=== PATIENT | male | born 1955 | race African-American/Black ===

== ENCOUNTER 2016-07-26 23:11 | Emergency (ER) | payer MEDICARE, BC ==
[~2016-07-26] VITALS: Ht 165.1 cm; Wt 108.2 kg
[~2016-07-26 23:11] MED LIST: ASPIRIN E.C. 8181 MG PO; CLOTRIMAZOLE1% TP; DILTIAZEM HYDR240 MG PO; GEMCOR600 MG PO; GLUCOPHAGE1000 MG PO; INDOCIN50 MG PO; INSULIN 70/3100 U/ML SQ; INSULIN SYRINGE1 DEV; LORTAB 10/500 51 TAB PO; NEURONTIN300 MG/CAP PO; NITROGLYCERIN0.4 MG SL; OMEPRAZOLE20 MG PO; QUETIAPINE FUM100 MG PO; SERTRALINE HCL100 MG PO; VALIUM 10MG10 MG/TAB PO
[2016-07-26 23:20] VITALS: BP 148/77; TEMP 98.1
[2016-07-27 00:21] LABS: BASO # 0.1 (0.0-0.2); BASO % 0.7 % (0.0-2.0); EOS # 0.2 (0.0-0.7); EOS % 2.6 % (0-4.0); GRAN % 39.4 % (42.2-75.2); HEMATOCRIT 34.1 % (42.0-52.0); LYMPH # 3.5 (1.2-3.4); LYMPH % 46.3 % (20.0-51.0); MEAN CELL VOLUME 81 fl (80.0-100.0); MEAN CORPUSCULAR HEMOGLOBIN 26 pg (27.0-31.0); MEAN CORPUSCULAR HGB CONC 32 g/dl (33.0-37.0); MEAN PLATELET VOLUME 10.4 fl (7.4-10.4); MONO # 0.8 (0.1-0.6); MONO % 10.6 % (1.7-9.3); PLATELET COUNT 212 K/mm3 (130-400); RED BLOOD COUNT 4.19 M/mm3 (4.20-5.60); REDCELL DISTRIBUTION WIDTH-CV 15.3 % (11.5-14.5); WHITE BLOOD COUNT 7.6 K/mm3 (4.8-10.8)
[2016-07-27 00:33] LABS: ADJUSTED CALCIUM 8.7 mg/dL (8.4-10.2); ALANINE AMINOTRANSFERASE 26 U/L (21-72); ALBUMIN 4.3 gm/dL (3.5-5.0); ALKALINE PHOSPHATASE 91 U/L (50-136); ANION GAP 16 mmol/L (7-16); BILIRUBIN,TOTAL 0.6 mg/dL (0.0-1.0); BLOOD UREA NITROGEN 16 mg/dL (9-20); CALCIUM 8.9 mg/dL (8.4-10.2); CARBON DIOXIDE 23 mmol/L (22-30); CHLORIDE 102 mmol/L (98-107); CREATININE, serum 0.91 mg/dL (0.66-1.25); GLUCOSE 83 mg/dL (74-106); POTASSIUM 3.5 mmol/L (3.4-5.0); SODIUM 141 mmol/L (137-145); TOTAL PROTEIN 7.7 gm/dL (6.4-8.2)
[2016-07-27 00:51] LABS: TROPONIN-I < 0.012 ng/mL (0.000-0.034)
[2016-07-27] MEDS ORDERED: FOLIC ACID0.4 MG PO (00:54)
[2016-07-27] MEDS ORDERED: PROTONIX 40MG T40 MG PO (00:54)
[2016-07-27] MEDS ORDERED: EFFEXOR 75M75 MG/TAB PO (00:56)
[2016-07-27] MEDS ORDERED: VIAGRA100 M1 PO (00:56)
[2016-07-27] MEDS ORDERED: SENOKOT S 50 MG1 TAB PO (00:57)
[2016-07-27] MEDS ORDERED: LEADER EYE ITCH5 ML OP (00:58)
[2016-07-27] MEDS ORDERED: COZAAR100 MG PO (00:59)
[2016-07-27] MEDS ORDERED: CARDIZEM CD360 MG PO (01:00)
[2016-07-27] MEDS ORDERED: DITROPAN XL10 MG PO (01:00)
[2016-07-27] MEDS ORDERED: TRUSOPT OCUMETE10 ML OP (01:01)
[2016-07-27] MEDS ORDERED: XALATAN EYE DROPS OU (01:05)
[2016-07-27 03:31] LABS: PH 5 (5-8); SQUAMOUS EPITHELIAL None Seen /hpf; URINE APPEARANCE Clear; URINE BACTERIA None Seen /hpf; URINE BILIRUBIN Negative (NEGATIVE); URINE BLOOD Negative (NEGATIVE); URINE COLOR Yellow; URINE GLUCOSE 1+ (NEGATIVE); URINE KETONE Negative (NEGATIVE); URINE RBC 0-2 /hpf; URINE UROBILINOGEN Negative (NEGATIVE); URINE WBC 0-2 /hpf
[2016-07-27 03:52] VITALS: PULSE 72
== END 2016-07-27 03:54 | disposition home or self-care (01) ==
LOC: COL.ER 23:11
PROVIDERS: Emergency Medicine
DX: R07.89 Other chest pain (principal); M54.5 Low back pain; R33.9 Retention of urine, unspecified; I10 Essential (primary) hypertension; E10.9 Type 1 diabetes mellitus without complications; E78.5 Hyperlipidemia, unspecified; N40.1 Benign prostatic hyperplasia with lower urinary tract symptoms; K21.9 Gastro-esophageal reflux disease without esophagitis; I25.2 Old myocardial infarction; J44.9 Chronic obstructive pulmonary disease, unspecified; Z86.73 Personal history of transient ischemic attack (TIA), and cerebral infarction without residual deficits; Z87.891 Personal history of nicotine dependence; Z79.82 Long term (current) use of aspirin; Z95.0 Presence of cardiac pacemaker; Z79.84 Long term (current) use of oral hypoglycemic drugs; Z79.4 Long term (current) use of insulin
CPT/HCPCS: J1170; J1885; J7040

== ENCOUNTER 2016-11-06 07:50 | Day surgery (SDC) | payer MEDICARE, BC ==
[2016-11-06] VITALS (14 sets, daily range): BP systolic 124–162; BP diastolic 71–90; PULSE 56–87; TEMP 97.6
[~2016-11-06] VITALS: Ht 165.2 cm; Wt 106.3 kg
[~2016-11-06 07:50] MED LIST changes: +CARDIZEM CD360 MG PO; +COZAAR100 MG PO; +DITROPAN XL10 MG PO; +EFFEXOR 75M75 MG/TAB PO; +FOLIC ACID0.4 MG PO; +LEADER EYE ITCH5 ML OP; +PROTONIX 40MG T40 MG PO; +SENOKOT S 50 MG1 TAB PO; +TRUSOPT OCUMETE10 ML OP; +VIAGRA100 M1 PO; +XALATAN EYE DROPS OU
[2016-11-06] MEDS ORDERED: PLAVIX 75MG TAB75 MG PO (08:03)
[2016-11-06 08:40] LABS: HEMATOCRIT 38.7 % (42.0-52.0); HEMOGLOBIN 12.7 g/dl (13.5-18.0); MEAN CELL VOLUME 82 fl (80.0-100.0); MEAN CORPUSCULAR HEMOGLOBIN 27 pg (27.0-31.0); MEAN CORPUSCULAR HGB CONC 33 g/dl (33.0-37.0); MEAN PLATELET VOLUME 10.1 fl (7.4-10.4); PLATELET COUNT 233 K/mm3 (130-400); RED BLOOD COUNT 4.73 M/mm3 (4.20-5.60); WHITE BLOOD COUNT 7.1 K/mm3 (4.8-10.8)
[2016-11-06 08:54] LABS: CALCIUM 9.1 mg/dL (8.4-10.2); CREATININE, serum 0.91 mg/dL (0.66-1.25); POTASSIUM 3.8 mmol/L (3.4-5.0)
[2016-11-06 08:55] LABS: INR 1.1 (0.8-3.0)
[2016-11-06] MEDS ORDERED: FLOMAX 0.40.4 MG/CAP PO (09:23)
== END 2016-11-06 18:44 | disposition home or self-care (01) ==
LOC: COL.CAR 07:50
PROVIDERS: Internal Medicine Cardiovascular Disease
DX: I20.0 Unstable angina (principal); I10 Essential (primary) hypertension; I49.5 Sick sinus syndrome; E11.40 Type 2 diabetes mellitus with diabetic neuropathy, unspecified; F32.9 Major depressive disorder, single episode, unspecified; Z79.01 Long term (current) use of anticoagulants; Z79.4 Long term (current) use of insulin; Z87.891 Personal history of nicotine dependence; Z83.3 Family history of diabetes mellitus; Z82.49 Family history of ischemic heart disease and other diseases of the circulatory system
CPT/HCPCS: C1894; J0360; J2250; J3010; Q9967

== ENCOUNTER → 2016-12-20 | Outpatient (CLI) | payer MEDICARE, BC ==
[~2016-12-20] MED LIST changes: +FLOMAX 0.40.4 MG/CAP PO; +PLAVIX 75MG TAB75 MG PO
== END ==
LOC: COL.RAD 14:28
DX: R20.0 Anesthesia of skin (principal); R51 Headache; Z86.73 Personal history of transient ischemic attack (TIA), and cerebral infarction without residual deficits

== ENCOUNTER → 2017-11-11 | Outpatient (CLI) | payer MEDICARE, BC | LOC: COL.RAD 13:00 | DX: M99.71 Connective tissue and disc stenosis of intervertebral foramina of cervical region (principal); M51.16 Intervertebral disc disorders with radiculopathy, lumbar region; M50.123 Cervical disc disorder at C6-C7 level with radiculopathy; G62.9 Polyneuropathy, unspecified; N13.9 Obstructive and reflux uropathy, unspecified; E78.5 Hyperlipidemia, unspecified; Z79.4 Long term (current) use of insulin ==

== ENCOUNTER 2018-03-14 01:42 | Emergency (ER) | payer MEDICARE, BC ==
[~2018-03-14] VITALS: Ht 165.1 cm; Wt 100.9 kg
[2018-03-14 01:48] VITALS: TEMP 97.9
[2018-03-14] MEDS ORDERED: FERROUS GL325 MG/TAB PO (02:02)
[2018-03-14] MEDS ORDERED: CYMBALTA 30MG30 MG PO (02:06)
[2018-03-14] MEDS ORDERED: COREG 3.123.125 MG/T PO (02:06)
[2018-03-14] MEDS ORDERED: CYMBALTA 60MG60 MG PO (02:06)
[2018-03-14] MEDS ORDERED: ZOFRAN8 MG PO (02:07)
[2018-03-14] MEDS ORDERED: LYRICA 100MG C100 M1 PO (02:07)
[2018-03-14] MEDS ORDERED: MOBIC15 MG PO (02:07)
[2018-03-14] MEDS ORDERED: RISPERDAL2 MG PO (02:07)
[2018-03-14] MEDS ORDERED: NOVOLIN 70/30 710 ML SQ (02:09)
[2018-03-14 02:25] LABS: BASO % 0.2 % (0.0-2.0); EOS % 0.5 % (0-4.0); GRAN # 4.8 (1.4-6.5); GRAN % 73.6 % (42.2-75.2); HEMATOCRIT 40.7 % (42.0-52.0); HEMOGLOBIN 13.9 g/dl (13.5-18.0); MEAN CELL VOLUME 85 fl (80.0-100.0); MEAN CORPUSCULAR HEMOGLOBIN 29 pg (27.0-31.0); MEAN CORPUSCULAR HGB CONC 34 g/dl (33.0-37.0); MEAN PLATELET VOLUME 10.6 fl (7.4-10.4); MONO # 0.7 (0.1-0.6); MONO % 10.1 % (1.7-9.3); PLATELET COUNT 245 K/mm3 (130-400); RED BLOOD COUNT 4.77 M/mm3 (4.20-5.60); REDCELL DISTRIBUTION WIDTH-CV 13.4 % (11.5-14.5)
[2018-03-14 02:39] LABS: ALANINE AMINOTRANSFERASE 30 U/L (21-72); ALBUMIN 4.4 gm/dL (3.5-5.0); ALKALINE PHOSPHATASE 112 U/L (50-136); ANION GAP 11 mmol/L (7-16); AST,SGOT 29 U/L (15-37); BILIRUBIN,TOTAL 0.7 mg/dL (0.0-1.0); BLOOD UREA NITROGEN 15 mg/dL (9-20); C-REACTIVE PROTEIN 2.8 mg/dL (0.0-0.9); CALCIUM 9.2 mg/dL (8.4-10.2); CARBON DIOXIDE 24 mmol/L (22-30); CHLORIDE 104 mmol/L (98-107); CREATININE, serum 0.96 mg/dL (0.66-1.25); GLUCOSE 171 mg/dL (74-106); LIPASE 112 U/L (23-300); POTASSIUM 3.7 mmol/L (3.4-5.0); SODIUM 139 mmol/L (137-145)
[2018-03-14 02:48] LABS: TROPONIN-I < 0.012 ng/mL (0.000-0.034)
[2018-03-14] MEDS ORDERED: PHENERGAN 25 TA25 MG PO (04:50)
[2018-03-14 05:34] VITALS: BP 136/71; PULSE 74
== END 2018-03-14 05:35 | disposition home or self-care (01) ==
LOC: COL.ER 01:42
PROVIDERS: Emergency Medicine
DX: R11.2 Nausea with vomiting, unspecified (principal); R19.7 Diarrhea, unspecified; R10.9 Unspecified abdominal pain; E11.9 Type 2 diabetes mellitus without complications; F41.9 Anxiety disorder, unspecified; I10 Essential (primary) hypertension; F32.9 Major depressive disorder, single episode, unspecified; Z79.4 Long term (current) use of insulin; Z87.891 Personal history of nicotine dependence; Z98.890 Other specified postprocedural states
CPT/HCPCS: J2405; J7030

== ENCOUNTER → 2018-04-08 | Outpatient (CLI) | payer MEDICARE, BC ==
[~2018-04-08] MED LIST changes: +COREG 3.123.125 MG/T PO; +CYMBALTA 30MG30 MG PO; +CYMBALTA 60MG60 MG PO; +FERROUS GL325 MG/TAB PO; +LYRICA 100MG C100 M1 PO; +MOBIC15 MG PO; +NOVOLIN 70/30 710 ML SQ; +PHENERGAN 25 TA25 MG PO; +RISPERDAL2 MG PO; +ZOFRAN8 MG PO
== END ==
LOC: COL.RAD 07:46
DX: R11.2 Nausea with vomiting, unspecified (principal); R10.9 Unspecified abdominal pain
CPT/HCPCS: A9541

== ENCOUNTER → 2019-12-01 | Emergency (ER) | payer MEDICARE, BC ==
[~2019-12-01] VITALS: Ht 165.1 cm; Wt 94.5 kg
[~2019-12-01] MED LIST changes: +AMITRIPTYLINE H50 M1 PO; +CEPHALEXIN500 M1 PO; +COREG 25MG25 MG/TAB PO; -COREG 3.123.125 MG/T PO; +FLEXERIL 1010 MG/TAB PO; +MASON NATURAL2000 IU PO; +PEPCID 20MG TAB20 MG PO; +ZYRTEC 10MG10 MG PO
[2019-12-01 18:35] VITALS: BP 133/72; PULSE 72; TEMP 98.2
== END ==
LOC: COL.ER 18:17
DX: Z53.21 Procedure and treatment not carried out due to patient leaving prior to being seen by health care provider (principal); R73.9 Hyperglycemia, unspecified

== ENCOUNTER 2020-06-14 20:23 | Observation (INO) | payer MEDICARE ==
[~2020-06-14] VITALS: Ht 165.1 cm; Wt 96.8 kg
[2020-06-14 21:20] LABS: BASO % 0.6 % (0.0-2.0); EOS # 0.1 (0.0-0.7); EOS % 1.9 % (0-4.0); GRAN # 3.4 (1.4-6.5); GRAN % 50.1 % (42.2-75.2); HEMATOCRIT 33.8 % (42.0-52.0); HEMOGLOBIN 11.2 g/dl (13.5-18.0); LYMPH # 2.6 (1.2-3.4); LYMPH % 38.1 % (20.0-51.0); MEAN CELL VOLUME 87 fl (80.0-100.0); MEAN CORPUSCULAR HEMOGLOBIN 29 pg (27.0-31.0); MEAN CORPUSCULAR HGB CONC 33 g/dl (33.0-37.0); MONO # 0.6 (0.1-0.6); MONO % 8.9 % (1.7-9.3); PLATELET COUNT 251 K/mm3 (130-400); RED BLOOD COUNT 3.88 M/mm3 (4.20-5.60)
[2020-06-14 21:22] LABS: ALANINE AMINOTRANSFERASE 19 U/L (4-49); ALBUMIN 4.2 gm/dL (3.5-5.0); ALKALINE PHOSPHATASE 73 U/L (50-136); ANION GAP 10 mmol/L (7-16); AST,SGOT 24 U/L (15-37); BILIRUBIN,TOTAL < 0.1 mg/dL (0.0-1.0); BLOOD UREA NITROGEN 21 mg/dL (9-20); CALCIUM 9.2 mg/dL (8.4-10.2); CARBON DIOXIDE 27 mmol/L (22-30); CHLORIDE 100 mmol/L (98-107); CREATININE, serum 1.25 (0.66-1.25); GLUCOSE 261 mg/dL (74-106); LIPASE 81 U/L (23-300); POTASSIUM 4.1 mmol/L (3.4-5.0); SODIUM 136 mmol/L (137-145)
[2020-06-14 21:40] LABS: TROPONIN-I < 0.012 ng/mL (0.000-0.035)
[2020-06-14 21:53] LABS: TSH w REFLEX 0.738 uIU/mL (0.465-4.680)
[2020-06-14 23:22] LABS: COLLECTION METHOD CATHETER
[2020-06-14 23:42] LABS: PH 6 (5-8); SQUAMOUS EPITHELIAL None Seen /hpf; URINE APPEARANCE Clear; URINE BACTERIA None Seen /hpf; URINE BILIRUBIN Negative (NEGATIVE); URINE BLOOD Negative (NEGATIVE); URINE COLOR Yellow; URINE GLUCOSE 2+ (NEGATIVE); URINE KETONE Negative (NEGATIVE); URINE LEUKOCYTE ESTERASE Negative (NEGATIVE); URINE NITRATE Negative (NEGATIVE); URINE PROTEIN(semi-quant) Negative (NEGATIVE); URINE RBC 0-2 /hpf; URINE UROBILINOGEN Negative (NEGATIVE)
--- NOTE | 2020-06-15 05:38 | NUR ---
0445- PT ADMIT FROM ER W C/O DIZZY FALLS AND SOA ALONG W HYPERGLYCEMIA. PT LIVES ALONE AT HOME AND HAS HAD SEVERAL FALLS RECENTLY. ALSO ADMITS TO FEELING FORGETFUL AND HARD TO FIND WORDS TO [facility]. L AC INT, FLUSHED. 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 VERY UNSTEADY WHEN AMBULATING TO BR W CANE. BEDALARM ON. PLAN OF CARE REVIEWED. NPO FOR MRI THIS AM. WILL GET STROKE WORK UP THIS AM. C/O CONSTANT PAIN IN HAND AND FEET, NEUROPATHY. CALL LIGHT WI REACH.
--- NOTE | 2020-06-15 06:06 | NUR ---
DR HERNANDEZ CALLED FOR ORDERS. UPDATED ON PT STATUS. WILL PLACE MORE ORDERS THIS AM WHEN HE SEES HIM. DR BELTRAN IS AWARE OF CONSULT.
--- NOTE | 2020-06-15 07:30 | NUR ---
Patient resting in bed at this time. Does not C/O any pain, discomfort, or further needs at this time. Will continue to monitor. Call light within reach. Fall percautions in place.
[2020-06-15 07:34] VITALS: BP 154/62; PULSE 82; TEMP 97.4
[2020-06-15 11:25] VITALS: BP 133/69; PULSE 78; TEMP 97.8
--- NOTE | 2020-06-15 12:40 | NUR ---
First visit from the report specialist. No needs right now.
--- NOTE | 2020-06-15 12:48 | NUR ---
Patient given all scheduled medications. Consent obtained for a lumbar puncture. Patient C/O of neuropathy in hands and feet. Poell notified. Patient taken down by wheelchair for lumbar puncture.
--- NOTE | 2020-06-15 13:30 | NUR ---
Patient back from Lumbar Puncture. Tolerated procedure well. Will continue to monitor.
[2020-06-15 13:34] VITALS: BP 160/79; PULSE 82
--- NOTE | 2020-06-15 13:35 | NUR ---
Patient lying flat following procedure.
[2020-06-15 14:01] LABS: CSF APPEARANCE CLEAR; CSF COLOR COLORLESS; CSF RBC 13 /mm3 (0-0)
[2020-06-15 14:04] LABS: GLUCOSE,CSF 53 mg/dL (40-70); TOTAL PROTEIN,CSF 100 mg/dL (15-45)
--- NOTE | 2020-06-15 14:38 | NUR ---
NATHALIA met with the patient to discuss discharge plan. The patient lives alone in [place]. He states that his son, Ciaran (ph#[phone]), and his family also live in [facility]. He reports needing some assistance with ADLs prior to hospitalization and has a cane. He states that he receives private duty services from [facility]. SW contacted and confirmed services from [facility]. The CT pays for his services. An RN comes out once a week and he receives home making services through them twice a week. THe patient's PCP is Dr. Jaun Gaffney and he receives his medications from [facility] in . The patient does not have a DPOA-HC, but he states that he does have one completed and at home. He states that he designated his son, Ciaran. The patient is not and he has two living children: Ciaran and Colton. PT worked with the patient and recommend considering IPR. SW discussed this with the patient. The patient is interested in IPR. SW consulted IPR Director, Janet. Awaiting screen. NATHALIA contacted and updated the patient's son, Ciaran. He is agreeable to IPR. He confirms that he is the patient's DPOA-HC, but that he does not have a copy. He states that the DPOA-HC is at the patient's house. Discharge plan: Awaiting screen from IPR*
[2020-06-15 14:39] LABS: CSF MONONUCLEAR 100 % (70-100); CSF POLYMORPHONUCLEAR 0 % (0-6)
[2020-06-15 16:18] VITALS: BP 162/76; PULSE 87; TEMP 98
[2020-06-15 19:25] VITALS: BP 156/69; PULSE 95; TEMP 98.2
--- NOTE | 2020-06-15 19:28 | NUR ---
Patient had a lumbar puncture done today. Tolerated procedure well. Patient was also taken down for a T-spine and C-spine. Results pending. Patient denies any pain or discomfort at this time. Patient is A&O x4. Activitiy is 1 person assist with walker. Patient denies any further needs at this time Call light within reach. Fall percautions in place. Bedside report given to DOE Jc.
[2020-06-15] MEDS ORDERED: PROTONIX 40MG T40 MG PO (22:30)
[2020-06-15 23:32] VITALS: BP 149/64; PULSE 70; TEMP 98.3
--- NOTE | 2020-06-15 23:51 | NUR ---
2100- ALERT AND OX3. INTERMITTENT CONFUSION DOES NOT REMEMBER THIS RN ADMITTING HIM LAST NIGHT. VERY PLEASENT. DENIES ANY SOA, CHEST PAIN OR GENERAL PAIN. PM MEDS GIVEN. IV TO RT AC FLUSHED. POC DISCUSSED. CONT TO HAVE MILD RT SIDE WEAKNESS IN RT HAND AND LEG. OCCASIONALY FINDING HARD TIME COMING UP W WORDS. NEEDS MET.
[2020-06-16 04:03] VITALS: BP 142/83; PULSE 69; TEMP 97.8
[2020-06-16 05:36] LABS: LYME DISEASE ANTIBODIES Negative (Negative)
--- NOTE | 2020-06-16 05:49 | NUR ---
RESTED THROUGH THE NIGHT WO INCIDENT. UP TO BR THIS W ASST WALKER. SETTING UP IN CHAIR. DENIES NEEDS. AM MEDS GIVEN.
--- NOTE | 2020-06-16 07:26 | NUR ---
Patient up in his chair watching tv at this time. Pt. does not c/o any pain or discomfort at this time. Patient denies any further needs. Will continue to monitor. Call light within reach. Fall percautions in place.
[2020-06-16 07:47] VITALS: BP 138/64; PULSE 79; TEMP 98.2
[2020-06-16 07:57] LABS: BASO % 0.8 % (0.0-2.0); EOS # 0.1 (0.0-0.7); EOS % 2.3 % (0-4.0); GRAN # 2.4 (1.4-6.5); GRAN % 44.6 % (42.2-75.2); HEMOGLOBIN 11.8 g/dl (13.5-18.0); LYMPH # 2.2 (1.2-3.4); LYMPH % 41.1 % (20.0-51.0); MEAN CELL VOLUME 85 fl (80.0-100.0); MEAN CORPUSCULAR HEMOGLOBIN 29 pg (27.0-31.0); MEAN CORPUSCULAR HGB CONC 34 g/dl (33.0-37.0); MEAN PLATELET VOLUME 10.2 fl (7.4-10.4); MONO # 0.6 (0.1-0.6); PLATELET COUNT 263 K/mm3 (130-400); RED BLOOD COUNT 4.08 M/mm3 (4.20-5.60); REDCELL DISTRIBUTION WIDTH-CV 13.7 % (11.5-14.5)
[2020-06-16 08:04] LABS: HEMATOCRIT 34.5 % (42.0-52.0)
[2020-06-16 08:19] LABS: CALCIUM 9.6 mg/dL (8.4-10.2); CREATININE, serum 0.98 (0.66-1.25); MAGNESIUM 1.6 mg/dL (1.6-2.3); POTASSIUM 3.9 mmol/L (3.4-5.0)
[2020-06-16 11:44] VITALS: BP 140/59; PULSE 73; TEMP 97.5
--- NOTE | 2020-06-16 15:01 | NUR ---
Janet, IPR Director, notified NATHALIA that she met with the patient and he is not wanting to come to IPR and just wants to return home now. NATHALIA met with the patient and his son, Divina, to review the above and discuss discharge plan. The patient reports that he would prefer to return home and would be interested in home health services for PT/OT from [facility]. He reports that he has a rolaider at home that he can use. The patient's son was supportive of his decision. NATHALIA updated the PA. NATHALIA contacted and faxed a referral to Johnna at [facility]. Stephanie reports that they would be able to take the patient. SW to continue to follow. *Discharge plan: home with home health*
[2020-06-16 15:42] VITALS: BP 113/53; PULSE 70; TEMP 98.1
--- NOTE | 2020-06-16 16:07 | NUR ---
DR. BELTRAN IS PERFORMING A EMG AND LCV ON THE PATIENT. PATIENT'S SON AT THE BEDSIDE.
--- NOTE | 2020-06-16 17:37 | NUR ---
Patient is sitting in his chair. Son at the bedside. Patient demeanor very pleasant. Patient is A&O. Patient denies any pain, discomfort, or needs at this time. Will continue to monitor. Call light within reach. Fall percautions in place.
[2020-06-16 19:23] VITALS: BP 143/63; PULSE 72; TEMP 98.2
[2020-06-17 00:14] VITALS: BP 123/54; PULSE 70; TEMP 97.9
[2020-06-17 04:20] VITALS: BP 139/55; PULSE 75; TEMP 97.9
--- NOTE | 2020-06-17 05:41 | NUR ---
PATIENT HAD RESTFUL NIGHT, PATIENT CHOSE TO SLEEP IN RECLINER, WOKE EASILY; HAD N/C OF PAIN OR NEEDS THROUGH NIGHT
[2020-06-17 06:48] LABS: BASO % 0.6 % (0.0-2.0); EOS # 0.1 (0.0-0.7); EOS % 1.5 % (0-4.0); GRAN # 3.4 (1.4-6.5); GRAN % 50.6 % (42.2-75.2); HEMOGLOBIN 11.9 g/dl (13.5-18.0); LYMPH # 2.5 (1.2-3.4); LYMPH % 36.6 % (20.0-51.0); MEAN CELL VOLUME 86 fl (80.0-100.0); MEAN CORPUSCULAR HEMOGLOBIN 29 pg (27.0-31.0); MEAN CORPUSCULAR HGB CONC 33 g/dl (33.0-37.0); MEAN PLATELET VOLUME 10.3 fl (7.4-10.4); MONO # 0.7 (0.1-0.6); MONO % 10.6 % (1.7-9.3); PLATELET COUNT 265 K/mm3 (130-400); RED BLOOD COUNT 4.16 M/mm3 (4.20-5.60); REDCELL DISTRIBUTION WIDTH-CV 13.8 % (11.5-14.5)
[2020-06-17 06:49] LABS: CALCIUM 9.2 mg/dL (8.4-10.2); CREATININE, serum 0.98 (0.66-1.25); POTASSIUM 3.7 mmol/L (3.4-5.0)
[2020-06-17 07:33] LABS: HEMATOCRIT 35.9 % (42.0-52.0)
[2020-06-17 09:00] VITALS: BP 135/60; PULSE 80; TEMP 97.9
[2020-06-17] MEDS ORDERED: PLAVIX 75MG TAB75 MG PO (10:49)
--- NOTE | 2020-06-17 12:16 | NUR ---
Charles Update: CHARLES staffed about patient needing NGIV medications. Patient reports that he wants to go home and is concerned that [facility]. CHARLES staffed with outpatient [facility] and they reports that there must be a prior auth and medications accepted and there is a national shortage. Educated on difficulty of setup as outpatient and [facility] services. Educated patient on services and setting up outpatient. Patient reports that he is willing to do whatever he needs to make it work . Staffed with doctor on the information witht he [facility] services and insuracne prior auth and the medication expense. plans to send consult back to [facility] due to medications provisions. Patient will still go home with Home health services. CHARLES to Fax [facility] [place] at [phone]
[2020-06-17 16:13] LABS: CADMIUM BLOOD 0.4 ng/mL (<5.0); LEAD,SERUM** <1.0 mcg/dL (<5.0); MERCURY,SERUM <1 ng/mL (<10)
== END 2020-06-17 11:59 | disposition home or self-care (01) ==
LOC: COL.ER 20:23 → MEDICAL 06-15 03:58 → EDBEDREQ 06-15 04:09 → MEDICAL 06-17 11:59
PROVIDERS: Emergency Medicine; Family Medicine; Internal Medicine; Psychiatry & Neurology Neurology; ADMIT Student in an Organized Health Care Education/Training Program
DX: R29.6 Repeated falls (principal); R27.0 Ataxia, unspecified; M54.2 Cervicalgia; R47.81 Slurred speech; I10 Essential (primary) hypertension; E11.40 Type 2 diabetes mellitus with diabetic neuropathy, unspecified; E11.65 Type 2 diabetes mellitus with hyperglycemia; N40.0 Benign prostatic hyperplasia without lower urinary tract symptoms; K21.9 Gastro-esophageal reflux disease without esophagitis; H40.9 Unspecified glaucoma; F32.9 Major depressive disorder, single episode, unspecified; F41.9 Anxiety disorder, unspecified; Z95.0 Presence of cardiac pacemaker; Z86.73 Personal history of transient ischemic attack (TIA), and cerebral infarction without residual deficits; Z79.82 Long term (current) use of aspirin; Z79.899 Other long term (current) drug therapy; Z79.4 Long term (current) use of insulin; Z79.02 Long term (current) use of antithrombotics/antiplatelets; Z87.891 Personal history of nicotine dependence
CPT/HCPCS: 99233-AI; G0378; J1815; Q9967

== ENCOUNTER 2020-08-21 17:10 | Emergency (ER) | payer MEDICARE ==
[~2020-08-21] VITALS: Ht 165.1 cm; Wt 102.3 kg
[2020-08-21 17:11] VITALS: TEMP 97.9
[2020-08-21] MEDS ORDERED: LIPITOR20 MG PO (18:25)
[2020-08-21] MEDS ORDERED: CELEBREX 200MG200 MG PO (18:27)
[2020-08-21] MEDS ORDERED: PEPCID 20MG TAB20 MG PO (18:30)
[2020-08-21 20:02] VITALS: BP 130/68; PULSE 70
== END 2020-08-21 20:02 | disposition home or self-care (01) ==
LOC: COL.ER 17:10
DX: S09.90XA Unspecified injury of head, initial encounter (principal); S16.1XXA Strain of muscle, fascia and tendon at neck level, initial encounter; E11.9 Type 2 diabetes mellitus without complications; I10 Essential (primary) hypertension; J44.9 Chronic obstructive pulmonary disease, unspecified; Z86.73 Personal history of transient ischemic attack (TIA), and cerebral infarction without residual deficits; Z79.1 Long term (current) use of non-steroidal anti-inflammatories (NSAID); Z79.4 Long term (current) use of insulin; Z79.82 Long term (current) use of aspirin; Z79.02 Long term (current) use of antithrombotics/antiplatelets; Z79.899 Other long term (current) drug therapy; W01.198A Fall on same level from slipping, tripping and stumbling with subsequent striking against other object, initial encounter; Y93.01 Activity, walking, marching and hiking

== ENCOUNTER 2020-11-04 11:55 | Emergency (ER) | payer MEDICARE, OTHER ==
[~2020-11-04] VITALS: Ht 165.1 cm; Wt 102.3 kg
[~2020-11-04 11:55] MED LIST changes: +CELEBREX 200MG200 MG PO; +LIPITOR20 MG PO
[2020-11-04 12:08] VITALS: BP 158/82; TEMP 98
[2020-11-04] MEDS ORDERED: PERCOCET 325 MG1 TA2 PO (13:42)
[2020-11-04] MEDS ORDERED: CEPHALEXIN500 M1 PO (13:42)
[2020-11-04 14:05] VITALS: PULSE 83
== END 2020-11-04 14:05 | disposition home or self-care (01) ==
LOC: COL.ER 11:55
DX: S91.312A Laceration without foreign body, left foot, initial encounter (principal); E11.9 Type 2 diabetes mellitus without complications; Z87.891 Personal history of nicotine dependence; Z79.4 Long term (current) use of insulin; W20.8XXA Other cause of strike by thrown, projected or falling object, initial encounter

== ENCOUNTER 2021-11-23 07:46 | Day surgery (SDC) | payer MEDICARE, OTHER ==
[~2021-11-23] VITALS: Ht 165.1 cm; Wt 104.0 kg
[~2021-11-23 07:46] MED LIST changes: +PERCOCET 325 MG1 TA2 PO
[2021-11-23 10:40] VITALS: BP 143/72; PULSE 73; TEMP 96.9
--- NOTE | 2021-11-23 10:42 | NUR ---
1040 - PT arrives from procedure w/ Celina RN; PT assisted w/ stand and pivot from cart to chair 2:1. Monitors applied and vitals obtained. PT denies pain/nasuea; snack and drink provided to PT and family. Call erickson remains within reach if needed. Non-slip socks are on.
[2021-11-23 10:55] VITALS: BP 161/98; PULSE 74
--- NOTE | 2021-11-23 10:58 | NUR ---
1055 - Vitals obtained. PT continues to eat/drink; denies pain/nasuea. Awaiting DR to speak w/ PT. Call erickson remains within reach if needed.
[2021-11-23 11:10] VITALS: BP 152/77; PULSE 78
--- NOTE | 2021-11-23 11:18 | NUR ---
1110 - Vitals obtained. IV discontinued. Catheter tip intact and pressure bandage applied; no redness or swelling noted. DC instructions and educational material reviewed w/ PT who verbalized understanding and signed the related paperwork. Questions answered to PT satisfaction. PT refused RN assistance changing into personal clothes; call erickson remains within reach and visitor remains present.
--- NOTE | 2021-11-23 11:32 | NUR ---
1130 - PT dismissed from endo via wheelchair to the PT entrence by Cynthia AZAR; PT has DC packet and personal belongings. PT was assisted into private truck that his son is driving.
[2021-11-23 16:04] VITALS: BP 132/70; PULSE 56; TEMP 97.4
[2021-11-23] MEDS ORDERED: BASAGLAR K100 UNIT/1 SQ (16:45)
== END 2021-11-23 11:30 | disposition home or self-care (01) ==
LOC: SDCO 07:46
DX: K25.7 Chronic gastric ulcer without hemorrhage or perforation (principal); K20.90 Esophagitis, unspecified without bleeding
CPT/HCPCS: J2704; J7030